=== PATIENT | female | born 1975 | race Caucasian/White ===

== ENCOUNTER 2018-11-11 17:32 | Observation (INO) | payer BC ==
[2018-11-11] MEDS ORDERED: CALCIUM GLUC 10% 1 GM/10 ML VIAL IVP PRN (18:41)
[2018-11-11] MEDS ORDERED: MAGNESIUM SULF 4 GM/WATER 100 ML IV ONE (18:41)
[2018-11-11] MEDS ORDERED: BETAMETHASONE IM SYRINGE IM ONE (18:44)
[2018-11-11] MEDS ORDERED: DEXAMETHASONE 4 MG/ML VIAL IM ONE (19:00)
[2018-11-11] MEDS ORDERED: Mag Sulf 500 ML IV SCH (19:00)
[2018-11-11 19:15] LABS: PLATELET COUNT 222 10^3/uL (150-400)
[2018-11-11] MEDS ORDERED: NIFEdipine 10 MG CAP PO SCH (22:00)
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
== END 2018-11-11 21:35 | disposition short-term general hospital (02) ==
LOC: FLD 17:32
PROVIDERS: ADMIT Obstetrics & Gynecology; ATTEND Obstetrics & Gynecology
DX: O14.12 Severe pre-eclampsia, second trimester (principal); O99.342 Other mental disorders complicating pregnancy, second trimester; O09.522 Supervision of elderly multigravida, second trimester; F32.9 Major depressive disorder, single episode, unspecified; F41.9 Anxiety disorder, unspecified; Z3A.27 27 weeks gestation of pregnancy
CPT/HCPCS: 59025; 96372; G0378; 80307; G0480; J0610; J0702; J1100; J3475